=== PATIENT | male | born 1990 | race Caucasian/White ===

== ENCOUNTER 2023-08-07 21:26 | Emergency (ER) | payer BC ==
[~2023-08-07] VITALS: Ht 165.1 cm; Wt 72.6 kg
[2023-08-07 22:45] VITALS: BP 136/82; PULSE 78; RESP 18; TEMP 97.8; O2SAT 98
[2023-08-08] MEDS ORDERED: ACETAMINOPHEN EXTRA STRENGTH 500 MG TAB PO ONE (01:30)
[2023-08-08] MEDS ORDERED: ONDANSETRON 4 MG ODT PO ONE (01:30)
[2023-08-08] MEDS ORDERED: IBUP-1842 PO (01:30)
[2023-08-08] MEDS ORDERED: KETOROLAC 30 MG/ML VIAL IM ONE (01:30)
[2023-08-08] MEDS ORDERED: ONDA-188 PO (01:30)
== END 2023-08-08 02:06 | disposition home or self-care (01) ==
LOC: MED 21:26
DX: J02.9 Acute pharyngitis, unspecified (principal); Z79.899 Other long term (current) drug therapy; Z79.1 Long term (current) use of non-steroidal anti-inflammatories (NSAID)
CPT/HCPCS: 96372; 99283; J1885; Q0162